=== PATIENT | male | born 1965 | race Caucasian/White ===

== ENCOUNTER 2019-02-22 23:24 | Inpatient (IN) | payer MEDICAID ==
[~2019-02-22] VITALS: Ht 180.3 cm; Wt 107.5 kg
[2019-02-22 23:38] VITALS: BP 140/89
--- NOTE | 2019-02-22 23:38 | NUR ---
ED Nurse Note: Patient walked in to ER due tyo boil on posterior testicles that he was noted yesterday. Pt denies any discharges. No stated medical history. Able to ambulate with stable gait. Alert and oriented, verbally responsive. No SOB. Afebrile. Breathing even and unlabored.
[2019-02-23] VITALS (7 sets, daily range): BP systolic 132–141; BP diastolic 78–96
--- NOTE | 2019-02-23 00:17 | NUR ---
ED Nurse Note: US done at bedside.
[2019-02-23] MEDS ORDERED: Piperacillin/Tazobactam 3.375 GM in NS 110 ML IVPB ONE (00:30)
[2019-02-23] MEDS ORDERED: Omnipaque-300 100ml vial INJ PRN (00:30)
--- NOTE | 2019-02-23 00:36 | NUR ---
ED Nurse Note: IV line established. blood and urine collected and sent to lab.
[2019-02-23 00:58] LABS: APPEARANCE,URINE CLEAR; BILIRUBIN, URINE NEGATIVE (NEGATIVE); GLUCOSE, URINE (UA) NEGATIVE (NEGATIVE); KETONES,URINE 1+ (NEGATIVE); LEUKOCYTE ESTERASE ,URINE NEGATIVE (NEGATIVE); NITRITE,URINE NEGATIVE (NEGATIVE); PH,URINE 5 (4.5-8.0); UROBILINOGEN,URINE NORMAL MG/DL (0.0-1.0)
[2019-02-23 00:59] LABS: BASOPHILS % (AUTO) 0.7 % (0.0-2.0); EOSINOPHILS % (AUTO) 4.3 % (0.0-3.0); LYMPHOCYTES % (AUTO) 13.8 % (20.0-45.0); MEAN CORPUSCULAR VOLUME 90 FL (80-99); MONOCYTES % (AUTO) 7.9 % (1.0-10.0); NEUTROPHILS % (AUTO) 73.3 % (45.0-75.0); PLATELET COUNT 159 K/UL (150-450); RED BLOOD COUNT 5.24 M/UL (4.20-5.40); RED CELL DISTRIBUTION WIDTH 11.4 % (11.6-14.8); WHITE BLOOD COUNT 13.1 K/UL (4.8-10.8)
[2019-02-23 01:02] LABS: COLOR,URINE YELLOW; PROTEIN,URINE NEGATIVE (NEGATIVE)
--- NOTE | 2019-02-23 01:07 | Emergency Room Report ---
History of Present Illness General Chief Complaint: Skin Rash/Abscess Source: Patient Present Illness HPI Patient 53-year-old male presents for increased swelling and pain. Gradual onset of symptoms over the past 2 to 3 days. Increased pain and discomfort to the area. Increased urinary hesitancy associated.Patient reports having no prior history of diabetes. Perineal pain had been constant and achy. He reports having some prior abscess to the perineal area which spontaneously ruptured several months ago. This had resolved.Patient reports having gradual worsening discomfort. He states this is bearable. Is concerned about the increased pain to the area as well as swelling. He denies being diabetic or immunocompromise. Allergies: Uncoded Allergies: Raw Onions (Adverse Reaction, Intermediate, Itching throat, 02/23/19) Patient History Past Medical History: see triage record Reviewed Nursing Documentation: PMH: Agreed; PSxH: Agreed Nursing Documentation-PMH Past Medical History: No Stated History Review of Systems All Other Systems: negative except mentioned in HPI Physical Exam Vital Signs Date Time Temp Pulse Resp B/P (MAP) Pulse Ox O2 Delivery O2 Flow Rate FiO2 02/22/19 23:33 98.2 99 16 140/89 (106) 95 Room Air Sp02 EP Interpretation: reviewed, normal General Appearance: normal inspection, well appearing, no apparent distress, alert, GCS 15, obese Head: atraumatic ENT: normal ENT inspection, hearing grossly normal, normal voice Neck: normal inspection, full range of motion, supple, no bony tend Respiratory: normal inspection, lungs clear, normal breath sounds, no respiratory distress, no retraction, no wheezing Cardiovascular #1: regular rate, rhythm, no edema Gastrointestinal: normal inspection, normal bowel sounds, non tender, soft, no guarding, no hernia Musculoskeletal: normal inspection, back normal, normal range of motion Neurologic: normal inspection, alert, oriented x3, responsive, taker off III-XII nml as tested, speech normal Psychiatric: normal inspection, judgement/insight normal, mood/affect normal Skin: other - swelling and induration to perineum with small blisteriing Genitourinary: no CVA tenderness Medical Decision Making Diagnostic Impression: Primary Impression: Cellulitis of perineum Additional Impression: Leukocytosis ER Course Patient presented for increased perineal pain. Differential diagnosis include was not limited to her scrotal cellulitis, abscess, Amy's gangrene, tumor among others. Because of complexity of patient's case laboratory tests and imaging studies were ordered. Laboratory testing showed elevation of the white blood count. CT imaging read by radiology showed some evidence of cellulitic changes to the perineum without any definite gas but does not definitively rule out Amy's gangrene. EKG interpreted by me showed normal sinus rhythm with a rate of [address] or T wave changes. Patient does not appear to be septic. Patient was given IV Zosyn as well as vancomycin. Patient will be admitted to the hospital for further evaluation treatment. Dr. Villa was contacted for Dr. Pryor for inpatient management. Dr. Tellez was contacted for surgical consult. Labs Test 02/23/19 00:42 White Blood Count 13.1 K/UL (4.8-10.8) Red Blood Count 5.24 M/UL (4.20-5.40) Hemoglobin 16.0 G/DL (12.0-16.0) Hematocrit 47.0 % (37.0-47.0) Mean Corpuscular Volume 90 FL (80-99) Mean Corpuscular Hemoglobin 30.5 PG (27.0-31.0) Mean Corpuscular Hemoglobin Concent 34.0 G/DL (32.0-36.0) Red Cell Distribution Width 11.4 % (11.6-14.8) Platelet Count 159 K/UL (150-450) Mean Platelet Volume 8.6 FL (6.5-10.1) Neutrophils (%) (Auto) 73.3 % (45.0-75.0) Lymphocytes (%) (Auto) 13.8 % (20.0-45.0) Monocytes (%) (Auto) 7.9 % (1.0-10.0) Eosinophils (%) (Auto) 4.3 % (0.0-3.0) Basophils (%) (Auto) 0.7 % (0.0-2.0) Prothrombin Time 10.0 SEC (9.30-11.50) Prothromb Time International Ratio 0.9 (0.9-1.1) Activated Partial Thromboplast Time 30 SEC (23-33) Urine Color Yellow Urine Appearance Clear Urine pH 5 (4.5-8.0) Urine Specific [place] 1.025 (1.005-1.035) Urine Protein Negative (NEGATIVE) Urine Glucose (UA) Negative (NEGATIVE) Urine Ketones 1+ (NEGATIVE) Urine Blood Negative (NEGATIVE) Urine Nitrite Negative (NEGATIVE) Urine Bilirubin Negative (NEGATIVE) Urine Urobilinogen Normal MG/DL (0.0-1.0) Urine Leukocyte Esterase Negative (NEGATIVE) Sodium Level 138 MMOL/L (136-145) Potassium Level 3.9 MMOL/L (3.5-5.1) Chloride Level 101 MMOL/L (98-107) Carbon Dioxide Level 30 MMOL/L (21-32) Anion Gap 7 mmol/L (5-15) Blood Urea Nitrogen 17 mg/dL (7-18) Creatinine 1.3 MG/DL (0.55-1.30) Estimat Glomerular Filtration Rate 58.2 mL/min (>60) Glucose Level 117 MG/DL (74-106) Calcium Level 9.6 MG/DL (8.5-10.1) Total Bilirubin 0.7 MG/DL (0.2-1.0) Aspartate Amino Transf (AST/SGOT) 33 U/L (15-37) Alanine Aminotransferase (ALT/SGPT) 71 U/L (12-78) Alkaline Phosphatase 95 U/L (46-116) Total Protein 8.4 G/DL (6.4-8.2) Albumin 4.4 G/DL (3.4-5.0) Globulin 4.0 g/dL Albumin/Globulin Ratio 1.1 (1.0-2.7) EKG Diagnostic Results Rate: normal Rhythm: NSR ST Segments: no acute changes Last Vital Signs Date Time Temp Pulse Resp B/P (MAP) Pulse Ox O2 Delivery O2 Flow Rate FiO2 02/22/19 23:38 98.2 78 16 140/89 95 Room Air Status: unchanged Disposition: ADMITTED INPATIENT Condition: Stable Referrals: CESIA ZAVALA M.D. (PCP) Shawn Kiser MD Feb 23, 2019 01:07
[2019-02-23 01:11] LABS: ANION GAP 7 mmol/L (5-15); BLOOD UREA NITROGEN 17 mg/dL (7-18); CALCIUM 9.6 MG/DL (8.5-10.1); CARBON DIOXIDE 30 MMOL/L (21-32); CHLORIDE 101 MMOL/L (98-107); CREATININE 1.3 MG/DL (0.55-1.30); POTASSIUM 3.9 MMOL/L (3.5-5.1); SODIUM 138 MMOL/L (136-145)
[2019-02-23 01:13] LABS: INR 0.9 (0.9-1.1)
[2019-02-23 01:15] LABS: ALANINE AMINOTRANSFERASE 71 U/L (12-78); ALBUMIN 4.4 G/DL (3.4-5.0); ALBUMIN/GLOBULIN RATIO 1.1 (1.0-2.7); ALKALINE PHOSPHATASE 95 U/L (46-116); ASPARTATE AMINO TRANSFERASE 33 U/L (15-37); BILIRUBIN,TOTAL 0.7 MG/DL (0.2-1.0)
--- NOTE | 2019-02-23 01:17 | NUR ---
ED Nurse Note: Pt taken for CT.
--- NOTE | 2019-02-23 01:45 | NUR ---
ED Nurse Note: back from CT
--- NOTE | 2019-02-23 02:17 | Diagnostic Imaging Report ---
Clinical Indication: Scrotal swelling for 2 days Technique: No oral contrast utilized, per emergency room physician request IV administration nonionic contrast. Venous phase spiral acquisition obtained through the abdomen and pelvis. Multiplanar reconstructions were generated. Total dose length product 2409 mGycm. CTDIvol(s) 37 mGy. Dose reduction achieved using automated exposure control Comparison: none Findings: There is suggestion of edema of the scrotal skin. No scrotal gas demonstrated. There may be small bilateral hydroceles although this is difficult to assess. No evidence of pelvic venous abnormality. Normal spermatic cords. Normal caliber gonadal veins. The appendix is not definitely identified, but no findings to suggest acute appendicitis are evident. There is equivocal colonic diverticulosis. No evidence of diverticulitis. No small bowel distention. No free or loculated intraperitoneal gas or fluid. There is tiny fat-containing umbilical hernia. The liver is equivocally slightly hypoattenuating. The gallbladder, bile ducts, pancreas, spleen, adrenals, right kidney are all unremarkable. Left kidney demonstrates a subcentimeter low-attenuation lesion, most likely a benign cortical cyst or angiomyolipoma. No retroperitoneal or mesenteric mass or adenopathy. No pelvic mass or adenopathy. Included lung bases are clear. Extensive ossific densities are seen surrounding the right femoral head and neck, likely reflect multiple intra-articular loose bodies. Impression: Scrotal edema, etiology uncertain. Could be infectious or hemodynamic in origin. Consider sonography for better characterization if clinically indicated No acute process otherwise Equivocal slight hepatic fatty change Ossific densities surrounding surrounding the right femoral head and neck, likely multiple intra-articular loose bodies Equivocal colonic diverticulosis. No evidence of diverticulitis Incidental finding tiny fat-containing umbilical hernia The CT scanner at [facility] is accredited by the [employer] and the scans are performed using protocols designed to limit radiation exposure to as low as reasonably achievable to attain images of sufficient resolution adequate for diagnostic evaluation.
[2019-02-23] MEDS ORDERED: Vancomycin 1.5gm/NS Premix 275 ML IVPB ONE (02:45)
[2019-02-23] MEDS ORDERED: Vancomycin 1.5gm vial IVPB ONE ×2 (02:49→03:00)
[2019-02-23] MEDS ORDERED: Vancomycin 1.5 GM in NS 275 ML IVPB ONE (03:00)
--- NOTE | 2019-02-23 04:28 | NUR ---
ED Nurse Note: Report given to Rios RN from Telemetry.
--- NOTE | 2019-02-23 04:40 | NUR ---
TRANSFER TO FLOOR: Patient transferred to Telemetry as ordered. Report given to Rios GALLOWAY. Patient is alert and oriented, verbally responsive. Able to walk with steady gait. IV line on left AC 20g patent nad intact. Currently on Vanco 1.5mg and NS 500mg patent and infusing well. No SOB. Breathing even and unlabored. Afebrile. Belongings list done. Belongings was given to patient. Family member informed of transfer.
--- NOTE | 2019-02-23 04:45 | NUR ---
NURSE NOTES: Received report from Louise Wesley RN. regarding patient's transfer to TELE floor from ED. Arrived via gurney and ambulated to the bed without assistance. Belongings checked and noted, head to toe assessment initiated with no skin issues observed. Continuous cardiac monitoring in place per protocol. Kept clean, dry, and comfortable in bed. Fiance present at bedside. Will continue to monitor.
--- NOTE | 2019-02-23 05:10 | NUR ---
NURSE NOTES: Called and left message to [place]. LEACH regarding admit orders. Awaiting call-back
--- NOTE | 2019-02-23 06:00 | NUR ---
NURSE NOTES: Received new orders per Molazadeh. LEACH. Will continue plan of care.
--- NOTE | 2019-02-23 06:21 | NUR ---
HAND-OFF: Report given to Basil Spencer RN. Patient in bed with no S/S of distress. Endorsed plan of care.
--- NOTE | 2019-02-23 06:28 | NUR ---
NURSE NOTES: Received report from NILESH Nation. Patient is awake lying semi-malin's; resting comfortably. No signs of acute distress noted; complains of some pain. AOx4; able to make needs known. Checked IV site; patent and flushed. No erythema, bleeding, or infiltration noted. Bed at lowest position, brakes on, siderails up x3. Call light within reach. Will continue plan of care.
[2019-02-23] MEDS ORDERED: Piperacillin/Tazobactam 3.375 GM in NS 110 ML IVPB SCH ×4 (06:30)
--- NOTE | 2019-02-23 07:45 | NUR ---
HAND-OFF: Report given to NILESH Lau. Plan of care endorsed.
--- NOTE | 2019-02-23 08:07 | NUR ---
NURSE NOTES: Report karuna Alvarado RN. Patient aox4 with frustrated but cooperative affect. Eating breakfast and slight co pain in scrotal area. Patient stated "I need to know a plan.I want to go home and take antibiotic pills." Active listening and emotional support offered with explanation of cautionneeeded in cases of infrection and need for proper dosing with iv abx while waiting for dr to evaluate patient in room today. Bed in lowest, locked position and call tadeo and urinal in reach.
[2019-02-23 08:44] LABS: BASOPHILS % (AUTO) 0.5 % (0.0-2.0); HEMATOCRIT 43.3 % (42.0-52.0); HEMOGLOBIN 14.7 G/DL (14.2-18.0); LYMPHOCYTES % (AUTO) 15.1 % (20.0-45.0); MEAN CORPUSCULAR VOLUME 90 FL (80-99); MONOCYTES % (AUTO) 7.3 % (1.0-10.0); NEUTROPHILS % (AUTO) 72.1 % (45.0-75.0); PLATELET COUNT 160 K/UL (150-450); RED BLOOD COUNT 4.81 M/UL (4.70-6.10); RED CELL DISTRIBUTION WIDTH 11.5 % (11.6-14.8); WHITE BLOOD COUNT 10.8 K/UL (4.8-10.8)
[2019-02-23 09:03] LABS: ANION GAP 8 mmol/L (5-15); BLOOD UREA NITROGEN 14 mg/dL (7-18); CALCIUM 9.1 MG/DL (8.5-10.1); CARBON DIOXIDE 27 MMOL/L (21-32); CHLORIDE 103 MMOL/L (98-107); CREATININE 1.1 MG/DL (0.55-1.30); POTASSIUM 3.8 MMOL/L (3.5-5.1); SODIUM 138 MMOL/L (136-145)
[2019-02-23] MEDS: Heparin 5000 units/ml inj SUBQ SCH ×2 (09:16→20:40)
[2019-02-23] MEDS: Piperacillin/Tazobactam 3.375 GM in NS 110 ML IVPB SCH ×2 (09:17→17:36)
--- NOTE | 2019-02-23 09:42 | NUR ---
NURSE NOTES: Patient was upset that he has not seen dr. Called Dr Loving at 0935am. Patient originally refused IV zosyn but agreed after encouragement and explanation of therapy. At the same time called Dr Samuel, too to ensure best communication.
--- NOTE | 2019-02-23 14:32 | Consultation ---
History of Present Illness General Reason for Hospitalization: Skin Rash/Abscess Present Illness HPI This is a 53-year-old male who presented to [facility] for evaluation of perineal and scrotal edema for the past 2 to 3 days. Patient states he first noted it and it has been stable since and since not improving he came in for evaluation. States he tried to pop it but was unable to exude any fluid. No nausea vomiting fever chills. No similar events in the past. In ED noted to have leukocytosis and CT as below. Surgery called to evaluate and assist with care. Patient seen, patient evaluated, chart reviewed Allergies: Uncoded Allergies: Raw Onions (Adverse Reaction, Intermediate, Itching throat, 02/23/19) Patient History History Provided By: Patient Healthcare decision maker Resuscitation status Advanced Directive on File No Past Medical/Surgical History Past Medical/Surgical History: (1) Cellulitis of perineum (2) Cellulitis of perineum (3) Leukocytosis Review of Systems Review of Symptoms General ROS: no weight loss or fever Psychological ROS: no depression or mood changes, no memory loss Ophthalmic ROS: no visual changes or eye irritation ENT ROS: no nasal congestion, hearing loss, dizziness Allergy and Immunology ROS: no allergic symptoms or urticaria Hematological and Lymphatic ROS: no swollen glands, unusual bleeding or bruising Endocrine ROS: no polyuria, polydipsia, weight changes, temperature intolerance Respiratory ROS: no cough, shortness of breath, or wheezing Cardiovascular ROS: no chest pain or dyspnea on exertion Gastrointestinal ROS: denies abdominal pain, bright red blood in stool. Musculoskeletal ROS: no myalgias or arthralgias Neurological ROS: no TIA or stroke symptoms Dermatological ROS: no new or changing skin lesions, rashes or pruritis Physical Exam Physical Exam General appearance: alert, cooperative, no distress, appears stated age Head: Normocephalic, without obvious abnormality, atraumatic Eyes: conjunctivae/corneas clear. PERRL, EOM's intact. Fundi benign Throat: Lips, mucosa, and tongue normal. Teeth and gums normal Neck: supple, symmetrical, trachea midline, no adenopathy, thyroid: not enlarged, symmetric, no tenderness/mass/nodules, no carotid bruit and no JVD Lungs: clear to auscultation bilaterally Heart: regular rate and rhythm, S1, S2 normal, no murmur, click, rub or gallop Abdomen: soft, non-tender. Bowel sounds normal. No masses, no organomegaly Extremities: extremities normal, atraumatic, no cyanosis or edema Pulses: 2+ and symmetric Skin: Skin color, texture, turgor normal. No rashes or lesions Neurologic: Grossly normal Last 24 Hour Vital Signs Date Time Temp Pulse Resp B/P (MAP) Pulse Ox O2 Delivery O2 Flow Rate FiO2 02/23/19 12:00 103 02/23/19 12:00 98.2 18 141/89 (106) 95 02/23/19 09:00 Room Air 02/23/19 09:00 Room Air 02/23/19 08:00 98 02/23/19 08:00 98.9 20 134/89 (104) 94 02/23/19 05:32 Room Air 02/23/19 05:00 98.5 18 136/89 (105) 98 02/23/19 04:40 98.5 95 19 138/78 99 Room Air 02/23/19 04:30 98.5 95 19 138/78 99 Room Air 02/23/19 02:49 97.5 100 16 140/83 95 Room Air 02/22/19 23:38 98.2 78 16 140/89 95 Room Air 02/22/19 23:33 98.2 99 16 140/89 (106) 95 Room Air Intake and Output 02/22/19 02/23/19 19:00 07:00 Intake Total 230 ml Balance 230 ml Intake Oral 120 ml IV Total 110 ml # Voids 2 # Bowel Movements 1 Laboratory Tests Test 02/23/19 00:42 02/23/19 03:03 02/23/19 08:00 White Blood Count 13.1 K/UL (4.8-10.8) H 10.8 K/UL (4.8-10.8) Red Blood Count 5.24 M/UL (4.20-5.40) 4.81 M/UL (4.70-6.10) Hemoglobin 16.0 G/DL (12.0-16.0) 14.7 G/DL (14.2-18.0) Hematocrit 47.0 % (37.0-47.0) 43.3 % (42.0-52.0) Mean Corpuscular Volume 90 FL (80-99) 90 FL (80-99) Mean Corpuscular Hemoglobin 30.5 PG (27.0-31.0) 30.6 PG (27.0-31.0) Mean Corpuscular Hemoglobin Concent 34.0 G/DL (32.0-36.0) 34.1 G/DL (32.0-36.0) Red Cell Distribution Width 11.4 % (11.6-14.8) L 11.5 % (11.6-14.8) L Platelet Count 159 K/UL (150-450) 160 K/UL (150-450) Mean Platelet Volume 8.6 FL (6.5-10.1) 9.3 FL (6.5-10.1) Neutrophils (%) (Auto) 73.3 % (45.0-75.0) 72.1 % (45.0-75.0) Lymphocytes (%) (Auto) 13.8 % (20.0-45.0) L 15.1 % (20.0-45.0) L Monocytes (%) (Auto) 7.9 % (1.0-10.0) 7.3 % (1.0-10.0) Eosinophils (%) (Auto) 4.3 % (0.0-3.0) H 5.0 % (0.0-3.0) H Basophils (%) (Auto) 0.7 % (0.0-2.0) 0.5 % (0.0-2.0) Prothrombin Time 10.0 SEC (9.30-11.50) Prothromb Time International Ratio 0.9 (0.9-1.1) Activated Partial Thromboplast Time 30 SEC (23-33) Urine Color Yellow Urine Appearance Clear Urine pH 5 (4.5-8.0) Urine Specific [place] 1.025 (1.005-1.035) Urine Protein Negative (NEGATIVE) Urine Glucose (UA) Negative (NEGATIVE) Urine Ketones 1+ (NEGATIVE) H Urine Blood Negative (NEGATIVE) Urine Nitrite Negative (NEGATIVE) Urine Bilirubin Negative (NEGATIVE) Urine Urobilinogen Normal MG/DL (0.0-1.0) Urine Leukocyte Esterase Negative (NEGATIVE) Sodium Level 138 MMOL/L (136-145) 138 MMOL/L (136-145) Potassium Level 3.9 MMOL/L (3.5-5.1) 3.8 MMOL/L (3.5-5.1) Chloride Level 101 MMOL/L (98-107) 103 MMOL/L (98-107) Carbon Dioxide Level 30 MMOL/L (21-32) 27 MMOL/L (21-32) Anion Gap 7 mmol/L (5-15) 8 mmol/L (5-15) Blood Urea Nitrogen 17 mg/dL (7-18) 14 mg/dL (7-18) Creatinine 1.3 MG/DL (0.55-1.30) 1.1 MG/DL (0.55-1.30) Estimat Glomerular Filtration Rate 58.2 mL/min (>60) > 60 mL/min (>60) Glucose Level 117 MG/DL (74-106) H 154 MG/DL (74-106) H Calcium Level 9.6 MG/DL (8.5-10.1) 9.1 MG/DL (8.5-10.1) Total Bilirubin 0.7 MG/DL (0.2-1.0) Aspartate Amino Transf (AST/SGOT) 33 U/L (15-37) Alanine Aminotransferase (ALT/SGPT) 71 U/L (12-78) Alkaline Phosphatase 95 U/L (46-116) Total Protein 8.4 G/DL (6.4-8.2) H Albumin 4.4 G/DL (3.4-5.0) Globulin 4.0 g/dL Albumin/Globulin Ratio 1.1 (1.0-2.7) Lactic Acid Level 1.20 mmol/L (0.4-2.0) Height (Feet): 5 Height (Inches): 11.00 Weight (Pounds): 237 Medications Current Medications Medications (Trade) Dose Ordered Sig/Marissa Route PRN Reason Start Time Stop Time Status Last Admin Dose Admin Acetaminophen (Tylenol) 650 mg Q6H PRN ORAL Mild Pain/Temp > 100.5 02/23/19 06:00 03/25/19 05:59 Heparin Sodium (Porcine) (Heparin 5000 units/ml) 5,000 units EVERY 12 HOURS SUBQ 02/23/19 09:00 03/25/19 08:59 02/23/19 09:16 Iohexol (OMNIPAQUE-300 100ml) 100 ml NOW PRN INJ Radiology Procedure 02/23/19 00:30 02/25/19 00:30 Piperacillin Sod/ Tazobactam Sod 3.375 gm/Sodium Chloride 110 ml @ 27.5 mls/hr Q8H IVPB 02/23/19 09:00 03/02/19 08:59 02/23/19 09:17 Vancomycin HCl (Vanco rx to dose) 1 ea DAILY PRN MISC Per rx protocol 02/23/19 06:00 03/25/19 05:59 Vancomycin HCl 1 gm/Dextrose 275 ml @ 183.708 mls/hr Q12H IVPB 02/23/19 15:00 02/28/19 14:59 Assessment/Plan Problem List: (1) Cellulitis of perineum Assessment & Plan: 3-year-old 53-year-old male with perineal cellulitis. Does not seem to be Amy's gangrene. Has been stable over the past 3 days. Leukocytosis improvement this morning. On IV antibiotics. On exam no area of fluctuance. Cellulitis small portion. Tender. States that potentially improving. No acute surgical intervention planned. Recommend patient stay on for IV antibiotics and close monitoring. We will keep monitoring with local examination to ensure not worsening. If worsening will take immediately to the operating room for exploration. If improving can plan discharge with antibiotics. ICD Codes: L03.315 - Cellulitis of perineum SNOMED: [id number] Anant Tellez Feb 23, 2019 14:32
--- NOTE | 2019-02-23 14:48 | History and Physical ---
History of Present Illness General Date patient seen: Feb 23, 2019 Reason for Hospitalization: Cellulitis, rule out Fourneir's Gangrene Present Illness HPI This a 53-year-old male with no significant past medical history who presented to the ER with a progressively worsening tender, red, mobile 3x3cm mass underneath his scrotum for the past 2 days. The patient had a low-grade temperature of 100.52 days ago. He denies noticing any drainage from the mass. He has never had this before. About 2 months ago he had a similar mass in a different location which he self drained. This had resolved. In the ER the patient had a temperature of 98.5 blood pressure 136-140/89, tachycardic up to 100, respirations 16 and 19, pulse ox 95 to 99% on room air. Labs were remarkable for a white count of 13,000, lactate 1.2. CT abdomen and pelvis showed edema around the scrotum suspicious for cellulitis, cannot rule out Amy's gangrene. General surgery was consulted. Allergies: No known drug allergies Meds: none Past medical history: None Surgical history: None Family history: Mother has prediabetes Social history: [id number] history, quit in 2017 Alcohol: drinks socially Drugs: denies Allergies: Uncoded Allergies: Raw Onions (Adverse Reaction, Intermediate, Itching throat, 02/23/19) Patient History Healthcare decision maker Resuscitation status Advanced Directive on File No Review of Systems Constitutional: Denies: see HPI, chills, sweats, fever, malaise, weakness, other Eye: Denies: see HPI, eye pain, blurred vision, tearing, double vision, nose pain, nose congestion, acuity changes, discharge, other ENT: Denies: see HPI, ear pain, ear discharge, nose pain, nose congestion, throat pain, throat swelling, mouth pain, hearing loss, nasal discharge, other Respiratory: Denies: see HPI, cough, orthopnea, shortness of breath, stridor, wheezing, MICHEL, sputum, other Cardiovascular: Denies: see HPI, chest pain, edema, palpitations, syncope, PND , other Gastrointestinal: Denies: see HPI, abdominal pain, constipation, diarrhea, nausea, vomiting, melena, hematemesis, other Genitourinary: Denies: see HPI, discharge, dysuria, frequency, hematuria, pain , retention, incontinence, urgency, vag bleed/dc, other Musculoskeletal: Denies: see HPI, back pain, gout, joint pain, joint swelling, muscle pain, muscle stiffness, other Skin: Denies: see HPI, rash, change in color, change in hair/nails, dryness, lesions, other Psychiatric: Denies: see HPI, prior hx, anxiety, depressed feelings, emotional problems, SI, HI, hallucinations, other Neurological: Denies: see HPI, headache, numbness, paresthesia, seizure, tingling, tremors, focal weakness, syncope, dizziness, other Endocrine: Denies: see HPI, excessive sweating, flushing, intolerance to temperature, increased thirst, increased urine, unexplained weight loss, other Hematologic/Lymphatic: Denies: see HPI, anemia, blood clots, easy bleeding, easy bruising, swollen glands, diathesis, other Physical Exam General Appearance: WD/WN, no apparent distress, alert Lines, tubes and drains: peripheral HEENT: normocephalic, atraumatic, anicteric Neck: non-tender, normal alignment, supple Respiratory/Chest: chest wall non-tender, lungs clear, normal breath sounds, no respiratory distress Cardiovascular/Chest: normal peripheral pulses, normal rate, regular rhythm Abdomen: normal bowel sounds, non tender, soft, no organomegaly, no mass Extremities: normal range of motion, non-tender, normal inspection Skin Exam: normal pigmentation, warm/dry, other - At scrotum base Neurologic: etl application developer II-XII grossly normal, no motor/sensory deficits, alert, oriented x 3 Musculoskeletal: normal muscle bulk, no effusion Last 24 Hour Vital Signs Date Time Temp Pulse Resp B/P (MAP) Pulse Ox O2 Delivery O2 Flow Rate FiO2 02/23/19 12:00 103 02/23/19 12:00 98.2 18 141/89 (106) 95 02/23/19 09:00 Room Air 02/23/19 09:00 Room Air 02/23/19 08:00 98 02/23/19 08:00 98.9 20 134/89 (104) 94 02/23/19 05:32 Room Air 02/23/19 05:00 98.5 18 136/89 (105) 98 02/23/19 04:40 98.5 95 19 138/78 99 Room Air 02/23/19 04:30 98.5 95 19 138/78 99 Room Air 02/23/19 02:49 97.5 100 16 140/83 95 Room Air 02/22/19 23:38 98.2 78 16 140/89 95 Room Air 02/22/19 23:33 98.2 99 16 140/89 (106) 95 Room Air Intake and Output 02/22/19 02/23/19 19:00 07:00 Intake Total 230 ml Balance 230 ml Intake Oral 120 ml IV Total 110 ml # Voids 2 # Bowel Movements 1 Laboratory Tests Test 02/23/19 00:42 02/23/19 03:03 02/23/19 08:00 White Blood Count 13.1 K/UL (4.8-10.8) H 10.8 K/UL (4.8-10.8) Red Blood Count 5.24 M/UL (4.20-5.40) 4.81 M/UL (4.70-6.10) Hemoglobin 16.0 G/DL (12.0-16.0) 14.7 G/DL (14.2-18.0) Hematocrit 47.0 % (37.0-47.0) 43.3 % (42.0-52.0) Mean Corpuscular Volume 90 FL (80-99) 90 FL (80-99) Mean Corpuscular Hemoglobin 30.5 PG (27.0-31.0) 30.6 PG (27.0-31.0) Mean Corpuscular Hemoglobin Concent 34.0 G/DL (32.0-36.0) 34.1 G/DL (32.0-36.0) Red Cell Distribution Width 11.4 % (11.6-14.8) L 11.5 % (11.6-14.8) L Platelet Count 159 K/UL (150-450) 160 K/UL (150-450) Mean Platelet Volume 8.6 FL (6.5-10.1) 9.3 FL (6.5-10.1) Neutrophils (%) (Auto) 73.3 % (45.0-75.0) 72.1 % (45.0-75.0) Lymphocytes (%) (Auto) 13.8 % (20.0-45.0) L 15.1 % (20.0-45.0) L Monocytes (%) (Auto) 7.9 % (1.0-10.0) 7.3 % (1.0-10.0) Eosinophils (%) (Auto) 4.3 % (0.0-3.0) H 5.0 % (0.0-3.0) H Basophils (%) (Auto) 0.7 % (0.0-2.0) 0.5 % (0.0-2.0) Prothrombin Time 10.0 SEC (9.30-11.50) Prothromb Time International Ratio 0.9 (0.9-1.1) Activated Partial Thromboplast Time 30 SEC (23-33) Urine Color Yellow Urine Appearance Clear Urine pH 5 (4.5-8.0) Urine Specific [place] 1.025 (1.005-1.035) Urine Protein Negative (NEGATIVE) Urine Glucose (UA) Negative (NEGATIVE) Urine Ketones 1+ (NEGATIVE) H Urine Blood Negative (NEGATIVE) Urine Nitrite Negative (NEGATIVE) Urine Bilirubin Negative (NEGATIVE) Urine Urobilinogen Normal MG/DL (0.0-1.0) Urine Leukocyte Esterase Negative (NEGATIVE) Sodium Level 138 MMOL/L (136-145) 138 MMOL/L (136-145) Potassium Level 3.9 MMOL/L (3.5-5.1) 3.8 MMOL/L (3.5-5.1) Chloride Level 101 MMOL/L (98-107) 103 MMOL/L (98-107) Carbon Dioxide Level 30 MMOL/L (21-32) 27 MMOL/L (21-32) Anion Gap 7 mmol/L (5-15) 8 mmol/L (5-15) Blood Urea Nitrogen 17 mg/dL (7-18) 14 mg/dL (7-18) Creatinine 1.3 MG/DL (0.55-1.30) 1.1 MG/DL (0.55-1.30) Estimat Glomerular Filtration Rate 58.2 mL/min (>60) > 60 mL/min (>60) Glucose Level 117 MG/DL (74-106) H 154 MG/DL (74-106) H Calcium Level 9.6 MG/DL (8.5-10.1) 9.1 MG/DL (8.5-10.1) Total Bilirubin 0.7 MG/DL (0.2-1.0) Aspartate Amino Transf (AST/SGOT) 33 U/L (15-37) Alanine Aminotransferase (ALT/SGPT) 71 U/L (12-78) Alkaline Phosphatase 95 U/L (46-116) Total Protein 8.4 G/DL (6.4-8.2) H Albumin 4.4 G/DL (3.4-5.0) Globulin 4.0 g/dL Albumin/Globulin Ratio 1.1 (1.0-2.7) Lactic Acid Level 1.20 mmol/L (0.4-2.0) Height (Feet): 5 Height (Inches): 11.00 Weight (Pounds): 237 Medications Current Medications Medications (Trade) Dose Ordered Sig/Marissa Route PRN Reason Start Time Stop Time Status Last Admin Dose Admin Acetaminophen (Tylenol) 650 mg Q6H PRN ORAL Mild Pain/Temp > 100.5 02/23/19 06:00 03/25/19 05:59 Heparin Sodium (Porcine) (Heparin 5000 units/ml) 5,000 units EVERY 12 HOURS SUBQ 02/23/19 09:00 03/25/19 08:59 02/23/19 09:16 Iohexol (OMNIPAQUE-300 100ml) 100 ml NOW PRN INJ Radiology Procedure 02/23/19 00:30 02/25/19 00:30 Piperacillin Sod/ Tazobactam Sod 3.375 gm/Sodium Chloride 110 ml @ 27.5 mls/hr Q8H IVPB 02/23/19 09:00 03/02/19 08:59 02/23/19 09:17 Vancomycin HCl (Vanco rx to dose) 1 ea DAILY PRN MISC Per rx protocol 02/23/19 06:00 03/25/19 05:59 Vancomycin HCl 1 gm/Dextrose 275 ml @ 183.708 mls/hr Q12H IVPB 02/23/19 15:00 02/28/19 14:59 Assessment/Plan Problem List: (1) Sepsis ICD Codes: A41.9 - Sepsis, unspecified organism SNOMED: 82040896 (2) Scrotal mass ICD Codes: N50.89 - Other specified disorders of the male genital organs SNOMED: 92224737 (3) Cellulitis of perineum ICD Codes: L03.315 - Cellulitis of perineum SNOMED: 96960574 (4) Leukocytosis ICD Codes: D72.829 - Elevated white blood cell count, unspecified SNOMED: 659266801, 419471015 Assessment/Plan: This is a 53-year-old male with no significant past medical history presenting with a 3 x 3 cm scrotal mass and scrotal cellulitis. Ruling out Amy's gangrene. # Sepsis (WBC, heart rate) 2/2 scrotal cellulitis. Mass present but without fluctuance. - Improving. Rule out Amy's Gangrene > CT abdomen pelvis does not show obvious signs of Amy's, but still on the differential. -Admit to telemetry -Appreciate general surgery recommendations: Dr. Tellez. No acute surgical intervention -Appreciate infectious disease recommendations: Dr. Aaron -Blood cultures -Continue vancomycin and Zosyn -Continue IV fluids -Patient advised on hygiene practices FEN PPX one-point Fluids: IV fluids DVT ppx: Heparin SBQ Code status: Full code Dispo: Home pending workup Discussed with nursing, patient, and general surgery. 71 minutes spent on this encounter. Greater than 50% spent on care coordination and counseling. Time of note may not reflect time patient was seen Daniel Acuña D.O. Feb 23, 2019 14:48
[2019-02-23] MEDS: Vancomycin 1gm in D5W 275ml IVPB SCH (15:16)
--- NOTE | 2019-02-23 19:49 | NUR ---
Received handoff and pt from NILESH Lau. Patient on side of bed eating meal. cardiac monitor is in place, IV intact, asymptomatic, and patent. bed locked and in lowest position, call light within reach. No signs and symptoms of acute distress. Will continue plan of care.
--- NOTE | 2019-02-23 20:19 | NUR ---
NURSE NOTES: Patient with sligjht pain to testicular region and perineal area--scrotum elevated with towel providing some comfort. Patient refused pain meds.
--- NOTE | 2019-02-23 22:54 | NUR ---
NURSE NOTES: Gurpreet Vidal education diagnostician for Dr Samuel was notified that patient can't sleep and is requesting something to help him sleep. Dr Durbin ordered medication for sleep prn. see orders for details.
[2019-02-24] VITALS: BP 132/86
[2019-02-24] MEDS: Piperacillin/Tazobactam 3.375 GM in NS 110 ML IVPB SCH ×3 (01:05→16:51)
[2019-02-24] MEDS: Vancomycin 1gm in D5W 275ml IVPB SCH (03:00)
[2019-02-24 04:00] VITALS: BP 133/89
[2019-02-24 07:13] LABS: BASOPHILS % (AUTO) 1.1 % (0.0-2.0); EOSINOPHILS % (AUTO) 4.9 % (0.0-3.0); HEMATOCRIT 42.9 % (42.0-52.0); HEMOGLOBIN 14.5 G/DL (14.2-18.0); LYMPHOCYTES % (AUTO) 11.3 % (20.0-45.0); MEAN CORPUSCULAR VOLUME 90 FL (80-99); MONOCYTES % (AUTO) 7.8 % (1.0-10.0); NEUTROPHILS % (AUTO) 74.9 % (45.0-75.0); PLATELET COUNT 138 K/UL (150-450); RED BLOOD COUNT 4.77 M/UL (4.70-6.10); RED CELL DISTRIBUTION WIDTH 11.6 % (11.6-14.8); WHITE BLOOD COUNT 7.1 K/UL (4.8-10.8)
--- NOTE | 2019-02-24 07:34 | NUR ---
Report given to Eliza GALLOWAY. Patient is stable. Plan of care was endorsed.
--- NOTE | 2019-02-24 07:38 | NUR ---
NURSE NOTES: Patient received from Marcelle GALLOWAY. Patient stable sitting up in bed. No s/sx of pain or distress. RR even and unlabored on RA. Side rails up x2, bed low and locked. Will continue to monitor.
[2019-02-24 07:41] LABS: ALANINE AMINOTRANSFERASE 76 U/L (12-78); ALBUMIN 3.6 G/DL (3.4-5.0); ALBUMIN/GLOBULIN RATIO 0.9 (1.0-2.7); ALKALINE PHOSPHATASE 87 U/L (46-116); ANION GAP 9 mmol/L (5-15); ASPARTATE AMINO TRANSFERASE 31 U/L (15-37); BLOOD UREA NITROGEN 11 mg/dL (7-18); CARBON DIOXIDE 27 MMOL/L (21-32); CHLORIDE 103 MMOL/L (98-107); CREATININE 1.2 MG/DL (0.55-1.30); SODIUM 139 MMOL/L (136-145)
[2019-02-24 08:00] VITALS: BP 141/95
[2019-02-24] MEDS: Heparin 5000 units/ml inj SUBQ SCH ×2 (08:37→21:00)
--- NOTE | 2019-02-24 09:53 | NUR ---
NURSE NOTES: Per sewer hand RN. Patient had a reaction to Vancomycin (chills and shivering for about 20min). Dr. Hannah called and notified.
--- NOTE | 2019-02-24 09:59 | NUR ---
NURSE NOTES: No IV pumps available. Will begin fluids when IV pump is ready.
[2019-02-24 11:52] VITALS: BP 149/91
--- NOTE | 2019-02-24 12:00 | NUR ---
NURSE NOTES: Dr. Aaron called regarding positive blood cx for gram positive cocci in clusters.
--- NOTE | 2019-02-24 15:19 | General Progress Note ---
Assessment/Plan Problem List: (1) Sepsis ICD Codes: A41.9 - Sepsis, unspecified organism SNOMED: 60150006 (2) Scrotal mass ICD Codes: N50.89 - Other specified disorders of the male genital organs SNOMED: 31408166 (3) Cellulitis of perineum ICD Codes: L03.315 - Cellulitis of perineum SNOMED: 38974195 (4) Leukocytosis ICD Codes: D72.829 - Elevated white blood cell count, unspecified SNOMED: 571841068, 375361055 Assessment/Plan: This is a 53-year-old male with no significant past medical history presenting with a 3 x 3 cm scrotal mass and scrotal cellulitis. Ruling out Amy's gangrene. # Sepsis (WBC, heart rate) 2/2 scrotal cellulitis. Mass present but without fluctuance. -Stable but with increased today. Rule out Amy's Gangrene #leukocytosis #scrotal mass #Scrotal cellulitis > CT abdomen pelvis does not show obvious signs of Amy's, but still on the differential. -Admit to telemetry -Appreciate general surgery recommendations: Dr. Tellez. No acute surgical intervention -Appreciate infectious disease recommendations: Dr. Aaron -Blood cultures -Continue vancomycin and Zosyn -Continue IV fluids -Patient advised on hygiene practices FEN PPX Fluids: IV fluids DVT ppx: Heparin SBQ Code status: Full code Dispo: Home pending workup Discussed with nursing, patient, and general surgery and infectious disease. 38 minutes spent on this encounter. Greater than 50% spent on care coordination and counseling. Time of note may not reflect time patient was seen Subjective Date patient seen: Feb 24, 2019 Constitutional: Denies: chills, diaphoresis, fever, malaise, weakness, other HEENT: Denies: eye pain, blurred vision, tearing, double vision, ear pain, ear discharge, nose pain, nose congestion, throat pain, throat swelling, mouth swelling, other Cardiovascular: Denies: chest pain, edema, irregular heart rate, lightheadedness, palpitations, syncope, other Respiratory: Denies: cough, orthopnea, shortness of breath, SOB with excertion , SOB at rest, sputum, stridor, wheezing, other Gastrointestinal/Abdominal: Denies: abdomen distended, abdominal pain, black stools, tarry stools, blood in stool, constipated, diarrhea, difficulty swallowing, nausea, poor appetite, poor fluid intake, rectal bleeding, vomiting , other Genitourinary: Denies: burning, discharge, frequency, flank pain, hematuria, incontinence, pain, urgency, other Neurologic/Psychiatric: Denies: anxiety, depressed, emotional problems, headache, numbness, paresthesia, pre-existing deficit, seizure, tingling, tremors, weakness, other Endocrine: Denies: excessive sweating, flushing, intolerance to cold, intolerance to heat, increased hunger, increased thirst, increased urine, unexplained weight gain, unexplained weight loss, other Hematologic/Lymphatic: Denies: anemia, easy bleeding, easy bruising, other Allergies: Uncoded Allergies: Raw Onions (Adverse Reaction, Intermediate, Itching throat, 02/23/19) Subjective No acute events overnight per nursing. Patient continues to have pain the perineal area. Some drainage now. She felt some chills last night. No fevers other vital signs are stable. Objective Last 24 Hour Vital Signs Date Time Temp Pulse Resp B/P (MAP) Pulse Ox O2 Delivery O2 Flow Rate FiO2 02/24/19 12:00 93 02/24/19 11:52 98.9 94 22 149/91 (110) 96 02/24/19 09:00 Room Air 02/24/19 08:00 98.9 96 20 141/95 (110) 95 02/24/19 08:00 97 02/24/19 04:00 93 02/24/19 04:00 98.6 92 18 133/89 (104) 98 02/24/19 00:00 98.6 92 18 132/86 (101) 98 02/24/19 00:00 92 02/23/19 22:29 Room Air 02/23/19 20:00 98.5 19 132/86 (101) 97 02/23/19 20:00 105 02/23/19 16:00 98.5 19 140/96 (111) 98 02/23/19 16:00 103 Intake and Output 02/23/19 02/24/19 19:00 07:00 Intake Total 1080 ml Output Total 1300 ml Balance 1080 ml -1300 ml Intake Oral 1080 ml Output Urine Total 1300 ml # Voids 6 # Bowel Movements 3 1 Laboratory Tests 02/24/19 06:16: White Blood Count 7.1, Red Blood Count 4.77, Hemoglobin 14.5, Hematocrit 42.9, Mean Corpuscular Volume 90, Mean Corpuscular Hemoglobin 30.4, Mean Corpuscular Hemoglobin Concent 33.8, Red Cell Distribution Width 11.6, Platelet Count 138L, Mean Platelet Volume 8.7, Neutrophils (%) (Auto) 74.9, Lymphocytes (%) (Auto) 11.3L, Monocytes (%) (Auto) 7.8, Eosinophils (%) (Auto) 4.9H, Basophils (%) ( Auto) 1.1, Erythrocyte Sedimentation Rate 64H, Sodium Level 139, Potassium Level 4.0, Chloride Level 103, Carbon Dioxide Level 27, Anion Gap 9, Blood Urea Nitrogen 11, Creatinine 1.2, Estimat Glomerular Filtration Rate > 60, Glucose Level 111H, Calcium Level 9.0, Total Bilirubin 1.0, Aspartate Amino Transf (AST/ SGOT) 31, Alanine Aminotransferase (ALT/SGPT) 76, Alkaline Phosphatase 87, C- Reactive Protein, Quantitative 12.3H, Total Protein 7.7, Albumin 3.6, Globulin 4.1, Albumin/Globulin Ratio 0.9L Height (Feet): 5 Height (Inches): 11.00 Weight (Pounds): 237 General Appearance: WD/WN, no apparent distress, alert EENT: PERRL/EOMI, normal ENT inspection Neck: non-tender, normal alignment, supple Cardiovascular: normal peripheral pulses, normal rate, regular rhythm, no JVD Respiratory/Chest: chest wall non-tender, lungs clear, normal breath sounds Abdomen: normal bowel sounds, non tender, soft, no organomegaly, no mass Genitourinary/Rectal: other - perineal soft tissue mass palpated under stcrotum with necrotic skin and slight drainage (worse compared to yesterday) Extremities: normal range of motion, non-tender Neurologic: burn out tender lace II-XII grossly normal, alert, oriented x 3, responsive Skin: other - see , no other rashes lesions or ulcers Daniel Acuña D.O. Feb 24, 2019 15:19
--- NOTE | 2019-02-24 15:42 | NUR ---
NURSE NOTES: Per Dr. Tellez, pt cleared from surgical standpoint.
[2019-02-24 16:00] VITALS: BP 137/86
--- NOTE | 2019-02-24 16:00 | Surgery Progress Note ---
Surgery Progress Note Subjective Additional Comments Patient seen and examined bedside. No acute events. Comfortable. States pain is improved. No nausea vomiting fever chills. Labs improved. Objective Last 24 Hour Vital Signs Date Time Temp Pulse Resp B/P (MAP) Pulse Ox O2 Delivery O2 Flow Rate FiO2 02/24/19 12:00 93 02/24/19 11:52 98.9 94 22 149/91 (110) 96 02/24/19 09:00 Room Air 02/24/19 08:00 98.9 96 20 141/95 (110) 95 02/24/19 08:00 97 02/24/19 04:00 93 02/24/19 04:00 98.6 92 18 133/89 (104) 98 02/24/19 00:00 98.6 92 18 132/86 (101) 98 02/24/19 00:00 92 02/23/19 22:29 Room Air 02/23/19 20:00 98.5 19 132/86 (101) 97 02/23/19 20:00 105 02/23/19 16:00 98.5 19 140/96 (111) 98 02/23/19 16:00 103 I&O Intake and Output 02/23/19 02/24/19 19:00 07:00 Intake Total 1080 ml Output Total 1300 ml Balance 1080 ml -1300 ml Intake Oral 1080 ml Output Urine Total 1300 ml # Voids 6 # Bowel Movements 3 1 Dressing: saturated Wound: clean Cardiovascular: RSR Respiratory: clear Abdomen: soft, flat, non-tender, present bowel sounds Extremities: no edema, no tenderness, no cyanosis Laboratory Tests Test 02/24/19 06:16 White Blood Count 7.1 K/UL (4.8-10.8) Red Blood Count 4.77 M/UL (4.70-6.10) Hemoglobin 14.5 G/DL (14.2-18.0) Hematocrit 42.9 % (42.0-52.0) Mean Corpuscular Volume 90 FL (80-99) Mean Corpuscular Hemoglobin 30.4 PG (27.0-31.0) Mean Corpuscular Hemoglobin Concent 33.8 G/DL (32.0-36.0) Red Cell Distribution Width 11.6 % (11.6-14.8) Platelet Count 138 K/UL (150-450) L Mean Platelet Volume 8.7 FL (6.5-10.1) Neutrophils (%) (Auto) 74.9 % (45.0-75.0) Lymphocytes (%) (Auto) 11.3 % (20.0-45.0) L Monocytes (%) (Auto) 7.8 % (1.0-10.0) Eosinophils (%) (Auto) 4.9 % (0.0-3.0) H Basophils (%) (Auto) 1.1 % (0.0-2.0) Erythrocyte Sedimentation Rate 64 MM/HR (0-20) H Sodium Level 139 MMOL/L (136-145) Potassium Level 4.0 MMOL/L (3.5-5.1) Chloride Level 103 MMOL/L (98-107) Carbon Dioxide Level 27 MMOL/L (21-32) Anion Gap 9 mmol/L (5-15) Blood Urea Nitrogen 11 mg/dL (7-18) Creatinine 1.2 MG/DL (0.55-1.30) Estimat Glomerular Filtration Rate > 60 mL/min (>60) Glucose Level 111 MG/DL (74-106) H Calcium Level 9.0 MG/DL (8.5-10.1) Total Bilirubin 1.0 MG/DL (0.2-1.0) Aspartate Amino Transf (AST/SGOT) 31 U/L (15-37) Alanine Aminotransferase (ALT/SGPT) 76 U/L (12-78) Alkaline Phosphatase 87 U/L (46-116) C-Reactive Protein, Quantitative 12.3 mg/dL (0.00-0.90) H Total Protein 7.7 G/DL (6.4-8.2) Albumin 3.6 G/DL (3.4-5.0) Globulin 4.1 g/dL Albumin/Globulin Ratio 0.9 (1.0-2.7) L Plan Problems: (1) Cellulitis of perineum Assessment & Plan: 3-year-old 53-year-old male with perineal cellulitis. Does not seem to be Amy's gangrene. Has been stable over the past 3 days. Leukocytosis improvement this morning. On IV antibiotics. On exam no area of fluctuance. Cellulitis small portion. Tender. States that potentially improving. No acute surgical intervention planned. Recommend patient stay on for IV antibiotics and close monitoring. We will keep monitoring with local examination to ensure not worsening. If worsening will take immediately to the operating room for exploration. If improving can plan discharge with antibiotics. Wound site evaluate again today. Erythema and cellulitis slightly decreased. Area of skin opening noted and this appears to be actually a carbuncle given its current appearance. No spreading no signs of active necrotizing infection. If anything improved today. Labs noted and stable. Discussed with patient. Okay to discharge from surgical standpoint on oral antibiotics when ready with infectious disease. Recommend local wound care and warm compress as possible. Follow-up with primary care physician surgeon few days for wound check. Anant Tellez Feb 24, 2019 16:00
--- NOTE | 2019-02-24 17:37 | Infectious Diseases Prog Note ---
Assessment/Plan Assessment/Plan Full consult dictated: perineal cellulitis doubt Amy's gangrene ? sepsis, leukocytosis 1/4 bottles gram + cocci in clusters - ? bacteremia, ? contaminant continue zosyn and zyvox pending final cultures thank you Subjective Allergies: Uncoded Allergies: Raw Onions (Adverse Reaction, Intermediate, Itching throat, 02/23/19) Objective Vital Signs Last 24 Hour Vital Signs Date Time Temp Pulse Resp B/P (MAP) Pulse Ox O2 Delivery O2 Flow Rate FiO2 02/24/19 16:00 97.7 93 22 137/86 (103) 97 02/24/19 12:00 93 02/24/19 11:52 98.9 94 22 149/91 (110) 96 02/24/19 09:00 Room Air 02/24/19 08:00 98.9 96 20 141/95 (110) 95 02/24/19 08:00 97 02/24/19 04:00 93 02/24/19 04:00 98.6 92 18 133/89 (104) 98 02/24/19 00:00 98.6 92 18 132/86 (101) 98 02/24/19 00:00 92 02/23/19 22:29 Room Air 02/23/19 20:00 98.5 19 132/86 (101) 97 02/23/19 20:00 105 Height (Feet): 5 Height (Inches): 11.00 Weight (Pounds): 237 Microbiology Date/Time Source Procedure Growth Status 02/23/19 02:56 Blood Blood Culture - Preliminary Resulted 02/23/19 02:35 Blood Blood Culture - Preliminary NO GROWTH AFTER 24 HOURS Resulted Laboratory Tests Test 02/24/19 06:16 White Blood Count 7.1 K/UL (4.8-10.8) Red Blood Count 4.77 M/UL (4.70-6.10) Hemoglobin 14.5 G/DL (14.2-18.0) Hematocrit 42.9 % (42.0-52.0) Mean Corpuscular Volume 90 FL (80-99) Mean Corpuscular Hemoglobin 30.4 PG (27.0-31.0) Mean Corpuscular Hemoglobin Concent 33.8 G/DL (32.0-36.0) Red Cell Distribution Width 11.6 % (11.6-14.8) Platelet Count 138 K/UL (150-450) L Mean Platelet Volume 8.7 FL (6.5-10.1) Neutrophils (%) (Auto) 74.9 % (45.0-75.0) Lymphocytes (%) (Auto) 11.3 % (20.0-45.0) L Monocytes (%) (Auto) 7.8 % (1.0-10.0) Eosinophils (%) (Auto) 4.9 % (0.0-3.0) H Basophils (%) (Auto) 1.1 % (0.0-2.0) Erythrocyte Sedimentation Rate 64 MM/HR (0-20) H Sodium Level 139 MMOL/L (136-145) Potassium Level 4.0 MMOL/L (3.5-5.1) Chloride Level 103 MMOL/L (98-107) Carbon Dioxide Level 27 MMOL/L (21-32) Anion Gap 9 mmol/L (5-15) Blood Urea Nitrogen 11 mg/dL (7-18) Creatinine 1.2 MG/DL (0.55-1.30) Estimat Glomerular Filtration Rate > 60 mL/min (>60) Glucose Level 111 MG/DL (74-106) H Calcium Level 9.0 MG/DL (8.5-10.1) Total Bilirubin 1.0 MG/DL (0.2-1.0) Aspartate Amino Transf (AST/SGOT) 31 U/L (15-37) Alanine Aminotransferase (ALT/SGPT) 76 U/L (12-78) Alkaline Phosphatase 87 U/L (46-116) C-Reactive Protein, Quantitative 12.3 mg/dL (0.00-0.90) H Total Protein 7.7 G/DL (6.4-8.2) Albumin 3.6 G/DL (3.4-5.0) Globulin 4.1 g/dL Albumin/Globulin Ratio 0.9 (1.0-2.7) L Current Medications Medications (Trade) Dose Ordered Sig/Marissa Route PRN Reason Start Time Stop Time Status Last Admin Dose Admin Acetaminophen (Tylenol) 650 mg Q6H PRN ORAL Mild Pain/Temp > 100.5 02/23/19 06:00 03/25/19 05:59 Heparin Sodium (Porcine) (Heparin 5000 units/ml) 5,000 units EVERY 12 HOURS SUBQ 02/23/19 09:00 03/25/19 08:59 02/23/19 20:40 Iohexol (OMNIPAQUE-300 100ml) 100 ml NOW PRN INJ Radiology Procedure 02/23/19 00:30 02/25/19 00:30 Linezolid 300 ml @ 300 mls/hr Q12HR IVPB 02/24/19 11:00 03/03/19 10:59 02/24/19 11:17 Piperacillin Sod/ Tazobactam Sod 3.375 gm/Sodium Chloride 110 ml @ 27.5 mls/hr Q8H IVPB 02/23/19 09:00 03/02/19 08:59 02/24/19 16:51 Sodium Chloride 1,000 ml @ 100 mls/hr Q10H IV 02/24/19 09:15 03/26/19 09:14 02/24/19 11:05 Temazepam (Restoril) 7.5 mg HSPRN PRN ORAL Insomnia 02/23/19 23:00 03/02/19 22:59 Nilo Hannah MD Feb 24, 2019 17:37
--- NOTE | 2019-02-24 19:47 | NUR ---
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 SEPSIS T 98.2 HR 99 RR 16 BP 140/89 SAT 95% ROOM AIR WBC 13.1 BLOOD CX PENDING IS: ZOSYN IV X1 ZOFRAN IV X1 VANCO IV X1 NS IVF BOLUS X1 PATIENT ADMITTED TO TELEMETRY UNIT 02/22/2019 DCP: PATIENT IS FROM HOME
--- NOTE | 2019-02-24 19:55 | NUR ---
HAND-OFF: Report given to Cari Hawley RN.Patient stable.
--- NOTE | 2019-02-24 19:56 | NUR ---
NURSE NOTES: Received pt from NILESH Kay. Pt awake, alert, and talkative. Bed in lowest position. Call light within reach. Will continue to monitor.
[2019-02-24 20:00] VITALS: BP 153/92
--- NOTE | 2019-02-24 20:15 | Consultation ---
DATE OF CONSULTATION: 02/24/2019 INFECTIOUS DISEASES CONSULTATION CONSULTING PHYSICIAN: Nilo Hannah M.D. ATTENDING PHYSICIAN: Valentín Samuel M.D. REFERRING PHYSICIAN: Daniel Acuña D.O. REASON FOR CONSULTATION: Perineal cellulitis, possible sepsis, elevated white count, gram-positive bacteremia, leukocytosis. CHIEF COMPLAINT: The patient's chief complaint coming into the hospital is perineal cellulitis and sepsis. HISTORY OF PRESENT ILLNESS: This is a very pleasant 53-year-old male who presents to [facility] with pain in the perineal area since Wednesday. The patient has perineal cellulitis and seen by Surgery. There is no surgical intervention at this time. One bottle out of the blood cultures had gram-positive cocci. Identification is pending. The patient had elevated white count, possible sepsis. Infectious Diseases Consultation requested. The patient initially started on vancomycin and Zosyn. However, he had reaction to vancomycin and he is on Zosyn and Zyvox at this time and he has less perineal pain. REVIEW OF SYSTEMS: Main issue is perineal pain. No dysuria or frequency. No fever, chills. HEAD AND NECK: No head pain or neck pain. CARDIAC: No chest pain. GASTROINTESTINAL: No nausea, vomiting, or diarrhea. GENITOURINARY: No Howell or CVA tenderness. PULMONARY: No congestion, shortness of breath. Again, he has perineal pain. PAST MEDICAL HISTORY: Otherwise completely negative. He denies any history of diabetes or hypertension. No cancer or heart disease. ALLERGIES: Onions. No antibiotic allergies. SOCIAL HISTORY: Negative for smoking, alcohol, drug abuse. FAMILY HISTORY: Noncontributory. MEDICATIONS: Upon reviewing the MAR, he is on the following medications: He is on IV fluids, temazepam, linezolid, Zosyn, heparin, acetaminophen, Iohexol, possible reaction to vancomycin which was stopped. Outside medications noted and reconciliated. PHYSICAL EXAMINATION: VITAL SIGNS: Temperature 97.7, pulse rate 93, respiratory rate 22, blood pressure 137/86, O2 saturation 97%. GENERAL: Alert and responsive, no distress. HEAD AND NECK: Oral exam, no thrush. Eye exam, no icterus. Neck is supple. No JVD. Normocephalic. HEART: Regular. No gallop or murmur. ABDOMEN: Soft. Positive bowel sounds and nontender. LUNGS: Clear bilaterally. No rhonchi or rales. SKIN: No rash. MUSCULOSKELETAL: No effusions. Legs are without cellulitis. PERIPHERAL VASCULAR: No cyanosis. NEUROLOGIC: Intact. LINES: Line sites without phlebitis. GENITOURINARY: exam was done with nursing staff in the room and he has what looks like clinically perineal cellulitis. There is no obvious fluctuance. There is redness in the perineal area consistent with cellulitis. LABORATORY DATA: Laboratory data as follows. Creatinine 1.2. White count 7.1, hemoglobin 14.5. White count as high as 13.1. Blood cultures 1/4 bottles has gram-positive cocci in clusters. Identification is pending. IMAGING STUDIES: CT scan of the abdomen and pelvis did show scrotal edema of uncertain etiology, no acute process otherwise, there is no mass mentioned. There is diverticulosis, but no diverticulitis. ASSESSMENT/PLAN: 1. The patient has what looks like perineal cellulitis with scrotal edema. I really did not see any cellulitis in the scrotal area, it is more of perineal area. The patient has possible sepsis, elevated white count. One bottles of gram-positive cocci in clusters, unclear if this is a contaminant versus pathogen. At this time, we will continue Zosyn and Zyvox for perineal cellulitis. Check blood culture. Monitor labs. The patient continues to clinically improve. We will transition to oral antibiotics such as Bactrim and Augmentin upon discharge for another week of treatment. He states he is improving at this time. Continue Zyvox and Zosyn for perineal cellulitis, possible bacteremia and sepsis for now. 2. No other past medical history. 3. Allergy to onion. 4. Social history is negative. 5. Family history is noncontributory. 6. MAR was noted. 7. Case was discussed with RN. 8. Case communicated with Dr. Acuña and Dr. Tellez from surgery. Nilo Hannah M.D. DR: Audrey JOB#: [id number] CC:
[2019-02-25] VITALS: BP 144/92
[2019-02-25] MEDS: Piperacillin/Tazobactam 3.375 GM in NS 110 ML IVPB SCH ×2 (01:00→09:16)
[2019-02-25 04:00] VITALS: BP 130/87
[2019-02-25 07:30] LABS: BASOPHILS % (AUTO) 0.6 % (0.0-2.0); EOSINOPHILS % (AUTO) 5.4 % (0.0-3.0); HEMATOCRIT 40.4 % (42.0-52.0); HEMOGLOBIN 13.7 G/DL (14.2-18.0); LYMPHOCYTES % (AUTO) 18.9 % (20.0-45.0); MEAN CORPUSCULAR VOLUME 90 FL (80-99); MONOCYTES % (AUTO) 12.3 % (1.0-10.0); NEUTROPHILS % (AUTO) 62.8 % (45.0-75.0); PLATELET COUNT 162 K/UL (150-450); RED BLOOD COUNT 4.49 M/UL (4.70-6.10); RED CELL DISTRIBUTION WIDTH 11.6 % (11.6-14.8); WHITE BLOOD COUNT 6.9 K/UL (4.8-10.8)
--- NOTE | 2019-02-25 07:36 | NUR ---
HAND-OFF: Report given to NILESH Parikh. Pt stable.
--- NOTE | 2019-02-25 07:37 | NUR ---
NURSE NOTES: Pt in bed, in low position, call light next to pt, pt makes needs known, pt able to ambulate, pt complains of scrotal edema, pt on ABX ivpb, denies pain, scrotum draining, pt desires to be d/c with Rx today, has been informed that we are waiting to see last blood culture. Pt reports no s/s of sob or distress.
[2019-02-25 07:54] LABS: ANION GAP 8 mmol/L (5-15); BLOOD UREA NITROGEN 9 mg/dL (7-18); CARBON DIOXIDE 27 MMOL/L (21-32); CHLORIDE 106 MMOL/L (98-107); CREATININE 1.2 MG/DL (0.55-1.30); POTASSIUM 4.1 MMOL/L (3.5-5.1); SODIUM 141 MMOL/L (136-145)
[2019-02-25 08:00] VITALS: BP 137/83
[2019-02-25] MEDS: Heparin 5000 units/ml inj SUBQ SCH (08:16)
--- NOTE | 2019-02-25 10:16 | Discharge Summary ---
Discharge Summary Hospital Course Date of Admission Feb 23, 2019 at 03:36 Date of Discharge 02/25/2019 Admitting Diagnosis scrotal cellulitis, sepsis Reason for Hospitalization: scrotal cellulitis, sepsis HPI Andres Hammond is a 53 year old male who was admitted on Feb 23, 2019 at 03:36 for Perineal Cellulitis/Sepsis Consultations Infectious Disease and General Surgery Hospital Course Andres Hammond is a 53 yo man with no significant PMH who presented with perineal erythema, warmth, and pain. Patient was found with perineal cellulitis and admitted for sepsis, to rule out Amy's. Patient's labs including CBC and BMP initially notable for leukocytosis, which resolved while in the hospital. Patient was evaluated by general surgery and infectious disease, and felt wound not consistent with Amy's. Patient was treated with IV zosyn and vancomycin initially, changed to zosyn and zyvox for one day when BCX grew 1 /4 bottle positive gram positive cocci. Eventual BCX result positive for coagulase negative staph, felt most likely to be a contaminant. Patient's cellulitis greatly improved with IV abx, pain resolving. Patient stable for discharge home from surgery and ID perspectives on 02/25/2019. Patient will complete 7 days course of PO Augmentin and Bactrim outpatient and follow up with primary care doctor in 1-2 weeks. Discharge Medications New Medications: Amoxicillin/Potassium Clav 875-125* (Augmentin 875-125 Tablet*) 1 Each Tablet 1 TAB ORAL TWICE A DAY, #14 TAB Trimethoprim/Sulfamethoxazole 160/800* (Bactrim Ds Tablet*) 1 Each Tablet 1 TAB ORAL Q12H, #14 TAB 0 Refills Discharge Condition Upon Discharge: improving Discharge Disposition Patient was discharged to home Discharge Diagnoses: (1) Cellulitis of perineum (2) Leukocytosis (3) Scrotal mass (4) Sepsis Micaela Luke M.D. Feb 25, 2019 10:16
[2019-02-25] MEDS ORDERED: BACTRIM DS TAB1 EAC1 ORAL (10:18)
[2019-02-25] MEDS ORDERED: AUGMENTIN 875-1 EAC1 ORAL (10:18)
--- NOTE | 2019-02-25 10:21 | Discharge Instructions ---
Discharge Instructions Discharge Instructions Follow up with: Follow up with your Primary Care Doctor in 1-2 weeks Call MD/Return to Hospital if: Worsening redness, swelling, pain in the perineal area; fever, chills Diet: regular Resume Normal Activity?: Yes Activity: as tolerated Micaela Luke M.D. Feb 25, 2019 10:21
[2019-02-25 12:00] VITALS: BP 139/90
--- NOTE | 2019-02-25 12:40 | Surgery Progress Note ---
Surgery Progress Note Subjective Symptoms: improved Objective Last 24 Hour Vital Signs Date Time Temp Pulse Resp B/P (MAP) Pulse Ox O2 Delivery O2 Flow Rate FiO2 02/25/19 12:00 98.0 81 22 139/90 (106) 96 02/25/19 08:24 Room Air 02/25/19 08:00 98.1 90 18 137/83 (101) 95 02/25/19 07:52 89 02/25/19 04:00 98.2 87 18 130/87 (101) 97 02/25/19 04:00 82 02/25/19 00:00 99.1 99 18 144/92 (109) 97 02/25/19 00:00 100 02/24/19 21:00 Room Air 02/24/19 20:00 98.4 99 18 153/92 (112) 97 02/24/19 20:00 100 02/24/19 16:00 97 02/24/19 16:00 97.7 93 22 137/86 (103) 97 I&O Intake and Output 02/24/19 02/25/19 18:59 06:59 # Voids 4 2 # Bowel Movements 1 Dressing: dry Wound: clean Cardiovascular: RSR Abdomen: soft, flat Extremities: no tenderness, no cyanosis Laboratory Tests Test 02/25/19 05:55 White Blood Count 6.9 K/UL (4.8-10.8) Red Blood Count 4.49 M/UL (4.70-6.10) L Hemoglobin 13.7 G/DL (14.2-18.0) L Hematocrit 40.4 % (42.0-52.0) L Mean Corpuscular Volume 90 FL (80-99) Mean Corpuscular Hemoglobin 30.6 PG (27.0-31.0) Mean Corpuscular Hemoglobin Concent 34.0 G/DL (32.0-36.0) Red Cell Distribution Width 11.6 % (11.6-14.8) Platelet Count 162 K/UL (150-450) Mean Platelet Volume 8.4 FL (6.5-10.1) Neutrophils (%) (Auto) 62.8 % (45.0-75.0) Lymphocytes (%) (Auto) 18.9 % (20.0-45.0) L Monocytes (%) (Auto) 12.3 % (1.0-10.0) H Eosinophils (%) (Auto) 5.4 % (0.0-3.0) H Basophils (%) (Auto) 0.6 % (0.0-2.0) Sodium Level 141 MMOL/L (136-145) Potassium Level 4.1 MMOL/L (3.5-5.1) Chloride Level 106 MMOL/L (98-107) Carbon Dioxide Level 27 MMOL/L (21-32) Anion Gap 8 mmol/L (5-15) Blood Urea Nitrogen 9 mg/dL (7-18) Creatinine 1.2 MG/DL (0.55-1.30) Estimat Glomerular Filtration Rate > 60 mL/min (>60) Glucose Level 111 MG/DL (74-106) H Calcium Level 9.0 MG/DL (8.5-10.1) Plan Problems: (1) Cellulitis of perineum Assessment & Plan: 3-year-old 53-year-old male with perineal cellulitis. Does not seem to be Amy's gangrene. Has been stable over the past 3 days. Leukocytosis improvement this morning. On IV antibiotics. On exam no area of fluctuance. Cellulitis small portion. Tender. States that potentially improving. No acute surgical intervention planned. Recommend patient stay on for IV antibiotics and close monitoring. We will keep monitoring with local examination to ensure not worsening. If worsening will take immediately to the operating room for exploration. If improving can plan discharge with antibiotics. Wound site evaluate again today. Erythema and cellulitis slightly decreased. Area of skin opening noted and this appears to be actually a carbuncle given its current appearance. No spreading no signs of active necrotizing infection. If anything improved today. Labs noted and stable. Discussed with patient. Okay to discharge from surgical standpoint on oral antibiotics when ready with infectious disease. Recommend local wound care and warm compress as possible. Follow-up with primary care physician surgeon few days for wound check. Anant Tellez Feb 25, 2019 12:40
--- NOTE | 2019-02-25 12:45 | NUR ---
NURSE NOTES: Pt has been cleared by Md and given prescription.. vitals WNL, pt calm and cooperative, pt has all belongings present in room, pt denies pain, Ox4, pt has all property with him. girlfriend Marie will be picking him up. Rx to be filled at his own pharmacy or local drug store. IV and ID band removed.
--- NOTE | 2019-02-25 14:05 | NUR ---
NURSE NOTES: Pt was walked out to front lobby and pt stated he will go to his nearest pharmacy to fill his Rx
--- NOTE | 2019-02-25 17:39 | Cardiology Report ---
APPROVED REPORT EKG Measurement Heart [id number] Normal sinus rhythm Normal ECG
== END 2019-02-25 14:07 | disposition home or self-care (01) | DRG 720 ==
LOC: EDSEX 23:50 → EMR 23:50 → EDBEDREQSVC 02-23 02:46 → 2E 02-23 03:36 → EDBEDREQ 02-23 04:13
DX: A41.9 Sepsis, unspecified organism (principal); L03.315 Cellulitis of perineum; N50.89 Other specified disorders of the male genital organs; Z87.891 Personal history of nicotine dependence
CPT/HCPCS: 36415; 74177; 80048; 80053; 81003; 83605; 85025; 85610; 85651; 85730; 86140; 87040; 87181; 93005; 96365; 96367; 96375; 99285; J2405